=== PATIENT | female | born 1955 | race Caucasian/White ===

== ENCOUNTER → 2016-11-04 | Outpatient (CLI) | payer MEDICARE ==
--- NOTE | 2016-11-04 09:24 | US ---
EXAMINATION TYPE: US abdomen complete DATE OF EXAM: 11/04/2016 8:39 AM COMPARISON: NONE CLINICAL HISTORY: 61-year-old female R10.11 RUQ PAIN. Gall bladder surgically absent. TECHNIQUE: Multiple sonographic images of the abdomen were obtained. FINDINGS: Liver Length: 15.9 cm CBD: 0.5 cm Spleen: 8.3 cm Right Kidney: 11.4 x 4.9 x 5.9 cm Left Kidney: 11.8 x 5.2 x 5.7 cm Pancreas: Grossly unremarkable. Liver: A few cysts are present within the right hepatic lobe, largest measuring 6.3 x 4.9 x 5.3 cm, and a second dominant cyst measuring up to 3.5 cm. Gallbladder: Surgically absent CBD: Within normal limits. Spleen: Within normal limits. Right Kidney: No hydronephrosis. There is a simple cyst measuring up to 2.6 cm. Left Kidney: No hydronephrosis. Upper IVC: Within normal limits. Abd Aorta: The upper abdominal aorta is aneurysmal at 3.2 x 3.5 cm. The mid abdominal aorta is borde rline aneurysmal at 3.0 x 2.5 cm. IMPRESSION: 1. Right-sided hepatic cysts, largest measuring 6.3 cm. Correlate for any potential patient symptoms due to the size of this largest cyst. 2. Additional 2.6 cm simple cyst in the right kidney. 3. Status post cholecystectomy. 4. Aneurysmal upper abdominal aorta (3.5 cm) and borderline aneurysmal mid abdominal aorta (3.0 cm). Appropriate follow-up recommended.
== END | disposition home or self-care (01) ==
LOC: RADUSWWP 08:13
PROVIDERS: ATTEND Family Medicine
DX: N28.1 Cyst of kidney, acquired (principal); K76.89 Other specified diseases of liver; I71.4 Abdominal aortic aneurysm, without rupture; Z90.49 Acquired absence of other specified parts of digestive tract
CPT/HCPCS: 76700

== ENCOUNTER → 2016-12-25 | Outpatient (CLI) | payer MEDICARE ==
[2016-12-25 16:25] LABS: Blood Urea Nitrogen 9 mg/dL (7-17); Non-African American GFR(MDRD) >60 (>60 ml/min/1.73 sqM)
== END | disposition home or self-care (01) ==
LOC: LABWHC1 15:55
PROVIDERS: ATTEND Internal Medicine Gastroenterology
DX: K76.89 Other specified diseases of liver (principal)
CPT/HCPCS: 36415; 82565; 84520

== ENCOUNTER → 2016-12-26 | Outpatient (CLI) | payer MEDICARE ==
--- NOTE | 2016-12-26 09:50 | MR ---
MRI liver with and without contrast HISTORY: Other specified disease of the liver, K 76.89, abdominal pain Multiplanar multisequence and postcontrast images through the liver following 20 cc MultiHance IV. Correlation to ultrasound abdomen October There is motion on the exam. There are too numerous to count cystic foci scattered throughout the liver of varying sizes. The larg est is present in the periportal location and measures approximately 6.3 cm. Large number of cortical cysts also associated with the kidneys. Abdominal aortic aneurysm is noted as described on patient's prior ultrasound report. Degenerative di sc disease, facet arthropathy with some associated spinal stenosis noted in the lower lumbar spine. No abnormal enhancement. Gallbladder is absent. There is no ascites or retroperitoneal adenopathy. Pancreas is unremarkable. Spleen is within normal limits. Adrenal glands show no abnormality. Heart size is borderline enlarged. No evident pleural eff usions. IMPRESSION: Multiple cysts within the liver and kidneys show nonaggressive appearance. Abdominal aort ic aneurysm. There is extensive motion on the exam. Additional findings above.
== END | disposition home or self-care (01) ==
LOC: RADMRIMAIN 08:11
PROVIDERS: ATTEND Internal Medicine Gastroenterology
DX: K76.89 Other specified diseases of liver (principal); I71.4 Abdominal aortic aneurysm, without rupture
CPT/HCPCS: 74183; A9577